=== PATIENT | male | born 2000 | race Caucasian/White ===

== ENCOUNTER 2024-01-30 16:28 | Emergency (ER) | payer OTHER, SELFPAY ==
[2024-01-30 16:37] VITALS: BP 153/88; PULSE 85; RESP 16; TEMP 36.9; O2SAT 97; BMI 23.9
--- NOTE | 2024-01-30 16:41 | XR_ITS ---
Patient: GILBERT JUNE Facility:?[facility] Patient ID:?[id number] Site Patient ID:?[id number]. Site :?[id number] Study:?XRay-Extremity Left Hand-01/30/2024 4:51:04 PM Ordering Physician:Franci Grace Final Report: INDICATION: Crush injury. Findings : Three views of the left hand show no evidence of acute fracture or dislocation. No other bony or soft tissue abnormalities identified. Dictated by Diogenes Feliz MD @ 01/30/2024 5:11:08 PM Dictated by: Diogenes Feliz MD @ 01/30/2024 17:11:12 Signed by:?Diogenes Feliz MD @01/30/2024 5:11:12 PM (Electronic Signature)
--- NOTE | 2024-01-30 17:40 | ED.GENADULT ---
HPI - General Adult General Date Seen: 01/30/24 Chief complaint: Extremity Pain/Injury, Upper Stated complaint: Left hand Pain Time Seen by Provider: 01/30/24 16:43 Source: patient Mode of arrival: ambulatory Limitations: no limitations History of Present Illness HPI narrative: Patient is a 23-year-old, right-handed male who was at work at [employer]. He was stacking pavers, suffered a crush injury of his left hand under some of the paving stones. Complains of pain primarily at the DIP of the 3rd finger. No bruising, swelling, deformity. No loss of function. His entire hand feels numb. Related Data Home Medications Medication Instructions Recorded Confirmed No Known Home Medications 01/30/24 01/30/24 Allergies Allergy/AdvReac Type Severity Reaction Status Date / Time No Known Drug Allergies Allergy Verified 01/30/24 16:40 PFSH PFSH Social History Smoking Status: Current every day smoker What tobacco products do you use: cigarettes How often do you have a drink containing alcohol: never How often do you have six or more drinks on one occasion: Never AUDIT-C Alcohol total score: 0 Non-prescribed substance use: denies use Exam Narrative: Exam Narrative: Vital signs reviewed In general, alert, well-appearing young man. Extremities: Examination of the left hand shows it to be normal in appearance, there is no bruising, swelling, deformity, erythema, abrasion or laceration. He has some tenderness over the and of the 3rd finger. There is no subungual hematoma. Skin: Warm dry and intact. Const: Vital Signs, click to edit/add: Vital Signs - 24 hr 01/30/24 16:37 Temperature 98.4 F Pulse Rate [Pulse Oximeter] 85 Respiratory Rate 16 Blood Pressure [Ri ght Upper Arm] 153/88 H Pulse Oximetry 97 Oxygen Delivery Me thod Room Air Documenting provider has reviewed patient's vital signs: yes Course Course ED Course: X-ray of the left hand of my review is negative. Read as negative by Radiology. Reviewed with him that this is soft tissue injury. He does feel like he would like to have a finger splint so that was placed by the nurse. Use this as needed over the next few days for comfort. Ibuprofen, Tylenol, ice. Should feel better within a week, if not he should be seen again. Vital Signs Vital signs: Initial Vital Signs Temperature 98.4 F 01/30/24 16:37 Temperature Source Temporal Artery Scan 01/30/24 16:37 Pulse Rate 85 01/30/24 16:37 Respiratory Rate 16 01/30/24 16:37 Blood Pressure 153/88 H 01/30/24 16:37 Blood Pressure Mean 109 H 01/30/24 16:37 Blood Pressure Position Sitting 01/30/24 16:37 Pulse Oximetry 97 01/30/24 16:37 Oxygen Delivery Method Room Air 01/30/24 16:37 Vital Signs Temperature 98.4 F 01/30/24 16:37 Pulse Rate 85 01/30/24 16:37 Respiratory Rate 16 01/30/24 16:37 Blood Pressure 153/88 H 01/30/24 16:37 Pulse Oximetry 97 01/30/24 16:37 Oxygen Delivery Method Room Air 01/30/24 16:37 Temperature 98.4 F 01/30/24 16:37 Pulse Rate 85 01/30/24 16:37 Respiratory Rate 16 01/30/24 16:37 Blood Pressure 153/88 H 01/30/24 16:37 Pulse Oximetry 97 01/30/24 16:37 Oxygen Delivery Method Room Air 01/30/24 16:37 Discharge Plan Discharge Clinical Impression: Contusion of left hand including fingers Patient Disposition: Home, Self-Care Condition: Stable Instructions: Contusion in Adults (ED) Additional Instructions: Your x-rays are normal, there is no evidence of a broken bone. I would recommend use of ibuprofen and/or Tylenol, ice over the next couple of days, this should feels significantly improved by about a week from now. If not, you should be seen for re-evaluation. Prescriptions: No Action No Known Home Medications Follow Up/Referrals: Provider,Not a Local [Primary Care Provider] - Stand Alone Forms: [employer] [employer] Info Instructions
== END 2024-01-30 17:18 | disposition home or self-care (01) ==
PROVIDERS: Emergency Provider Emergency Medicine
DX: S60.222A Contusion of left hand, initial encounter (principal)
CPT/HCPCS: 73130; 99283